=== PATIENT | male | born 1975 | race Caucasian/White ===

== ENCOUNTER 2020-12-14 15:20 | Emergency (ER) | payer SELFPAY ==
[2020-12-14 15:31] VITALS: BMI 25.4
[2020-12-14 16:27] LABS: BASO % 1.1 % (0-2.0); EOS % 0.3 % (0-4.5); HEMATOCRIT 45.5 % (35.4-49); HEMOGLOBIN 15.1 GM/dL (11.7-16.9); LYMPH % 19.4 % (8-40); MCH 27.1 pg (25.7-33.7); MCHC 33.2 g/dl (32.0-35.9); MEAN CELL VOLUME 81.5 fl (80-96); MEAN PLT VOLUME 8.2 fl (7.5-11.1); MONO % 6.5 % (3.8-10.2); NEUT % 72.7 % (42.8-82.8); PLATELET COUNT 274 K/MM3 (134-434); RBC 5.59 M/mm3 (4.00-5.60); RDW 13.5 % (11.9-15.9)
[2020-12-14 16:45] LABS: CHLORIDE 109 mmol/L (98-107); POTASSIUM 3.8 mmol/L (3.5-5.1); SODIUM 142 mmol/L (136-145)
[2020-12-14 16:47] LABS: ALBUMIN 4.3 g/dl (3.4-5.0); ANION GAP 6 MMOL/L (8-16); BLOOD UREA NITROGEN 20.9 mg/dL (7-18); CALCIUM 8.8 mg/dL (8.5-10.1); CO2 26 mmol/L (21-32)
[2020-12-14 16:48] LABS: GLUCOSE,RANDOM 99 mg/dL (74-106)
[2020-12-14 16:50] LABS: SGPT/ALT 41 U/L (13-61)
[2020-12-14 16:51] LABS: CREATININE 0.9 mg/dL (0.55-1.3); SGOT/AST 16 U/L (15-37)
[2020-12-14 16:52] LABS: BILIRUBIN,TOTAL 0.3 mg/dL (0.2-1)
[2020-12-14 16:53] LABS: ALK PHOS 67 U/L (45-117)
[2020-12-14 17:45] VITALS: BP 130/56; PULSE 78; TEMP 97.5
== END 2020-12-14 17:50 | disposition home or self-care (01) ==
LOC: JER 15:20
DX: F41.9 Anxiety disorder, unspecified (principal); R07.89 Other chest pain
CPT/HCPCS: 36415; 71045-TC-FY; 80053; 82550; 84484; 85025; 93005; 93010; 99284-25